=== PATIENT | female | born 1975 | race Caucasian/White ===

== ENCOUNTER 2023-02-12 23:28 | Emergency (ER) | payer BC ==
[2023-02-12] MEDS ORDERED: Sodium Chloride 0.9% 10 ML Syringe FLUSH PRN (23:56)
[2023-02-12] MEDS ORDERED: Ketorolac 30 MG/ML SDV IVPUSH ONE (23:56)
[2023-02-12] MEDS ORDERED: Ondansetron 4 MG/2 ML SDV IVPUSH ONE (23:56)
[2023-02-13 00:04] LABS: BASOPHILS ABSOLUTE AUTO 0.1 K/mm3 (0.0-0.2); EOSINOPHILS ABSOLUTE AUTO 0.1 K/mm3 (0.0-0.4); EOSINOPHILS PERCENT AUTO 0.6 % (0.0-6.0); HEMATOCRIT 38.8 % (37.0-47.0); HEMOGLOBIN 12.4 gm/dl (12.0-16.0); IMMATURE GRAN ABSOLUTE AUTO 0.04 K/mm3 (0.00-0.05); IMMATURE GRAN PERCENT AUTO 0.4 % (0.0-0.4); LYMPHOCYTES ABSOLUTE AUTO 0.7 K/mm3 (1.0-4.8); LYMPHOCYTES PERCENT AUTO 6.7 % (24.0-44.0); MEAN CORPUSCULAR HEMOGLOBIN 26.4 pg (28.0-32.0); MEAN CORPUSCULAR VOLUME 82.7 fl (83.0-99.0); MEAN PLATELET VOLUME 9.9 fl (9.4-12.3); MONOCYTES ABSOLUTE AUTO 0.4 K/mm3 (0.0-0.8); MONOCYTES PERCENT AUTO 4.4 % (0.0-8.0); NEUTROPHILS ABSOLUTE AUTO 8.4 K/mm3 (1.8-7.7); NEUTROPHILS PERCENT AUTO 86.9 % (41.0-71.0); PLATELET COUNT,PLT 408 K/mm3 (150-400); RED BLOOD CELL COUNT 4.69 M/mm3 (4.10-5.30); WHITE BLOOD CELL COUNT,WBC 9.63 K/mm3 (3.9-11.3)
[2023-02-13 00:40] LABS: A/G RATIO 0.8 (1-2); ALBUMIN 3.4 g/dl (3.4-5.0); ANION GAP 10.4 (5-15); BILIRUBIN TOTAL 0.4 mg/dL (0.2-1.0); EST CRCL DRUG DOSING (CG) 63.93 mL/min; MAGNESIUM 1.8 mg/dL (1.8-2.4); POTASSIUM,K 3.4 mEq/L (3.5-5.1); PROTEIN TOTAL,TP 7.7 g/dl (6.4-8.2)
[2023-02-13 02:17] LABS: APPEARANCE,URINE CLEAR (Clear); BILIRUBIN,URINE NEGATIVE (Negative); COLOR,URINE YELLOW (Yellow); GLUCOSE,URINE NEGATIVE (Negative); KETONES,URINE 2+ (Negative); LEUKOCYTE ESTERASE,URINE NEGATIVE (Negative); NITRITE,URINE NEGATIVE (Negative); OCCULT BLOOD,URINE NEGATIVE (Negative); PROTEIN,URINE NEGATIVE (Negative); UROBILINOGEN,URINE 0.2 (0.2-1.0)
[2023-02-13] MEDS ORDERED: Iopamidol 612 MG/ML 100 ML Bottle IVPUSH ONE (03:04)
[2023-02-13] MEDS ORDERED: Acetaminophen/HYDROcodone 325-5 MG Tab PO ONE (03:39)
[2023-02-13 04:18] VITALS: BP 143/95; PULSE 66
[2023-02-13] MEDS ORDERED: fentaNYL 100 MCG/2 ML SDV IVPUSH ONE (05:22)
[2023-02-13] MEDS ORDERED: Naloxone 0.4 MG/ML SDV IVPUSH PRN (05:22)
[2023-02-13] MEDS ORDERED: Nitroglycerin/D5W 25 MG/250 ML BOTTLE IV SCH (05:30)
[2023-02-13 12:09] LABS: AMORPHOUS SEDIMENT,URINE MODERATE /hpf (NOT SEEN); BACTERIA,URINE FEW /hpf (FEW); MUCUS,URINE RARE /hpf (FEW); RBC,URINE 0-5 /hpf (0-5); WBC,URINE 0-5 /hpf (0-5)
== END 2023-02-13 04:15 | disposition home or self-care (01) ==
LOC: JD.ED 23:28
DX: N20.1 Calculus of ureter (principal); I10 Essential (primary) hypertension; F17.210 Nicotine dependence, cigarettes, uncomplicated
CPT/HCPCS: 36415; 74177; 80053; 81001; 83735; 85025; 96374; 96375; 99284; A9270; J1885; J2405; J3490; Q9967

== ENCOUNTER 2023-09-03 20:02 | Emergency (ER) | payer BC, MEDICAID ==
[2023-09-03 20:36] LABS: BASOPHILS ABSOLUTE AUTO 0.1 K/mm3 (0.0-0.2); BASOPHILS PERCENT AUTO 1.6 % (0.0-1.0); EOSINOPHILS ABSOLUTE AUTO 0.4 K/mm3 (0.0-0.4); EOSINOPHILS PERCENT AUTO 6.4 % (0.0-6.0); HEMATOCRIT 35.6 % (37.0-47.0); IMMATURE GRAN ABSOLUTE AUTO 0.01 K/mm3 (0.00-0.05); IMMATURE GRAN PERCENT AUTO 0.2 % (0.0-0.4); LYMPHOCYTES ABSOLUTE AUTO 1.4 K/mm3 (1.0-4.8); MEAN CORPUSCULAR HEMOGLOBIN 24.9 pg (28.0-32.0); MEAN CORPUSCULAR HGB CONC 30.9 g/dl (32.0-36.0); MEAN CORPUSCULAR VOLUME 80.5 fl (83.0-99.0); MEAN PLATELET VOLUME 10.5 fl (9.4-12.3); MONOCYTES ABSOLUTE AUTO 0.7 K/mm3 (0.0-0.8); MONOCYTES PERCENT AUTO 11.8 % (0.0-8.0); NEUTROPHILS ABSOLUTE AUTO 3.5 K/mm3 (1.8-7.7); PLATELET COUNT,PLT 266 K/mm3 (150-400); RED BLOOD CELL COUNT 4.42 M/mm3 (4.10-5.30); WHITE BLOOD CELL COUNT,WBC 6.21 K/mm3 (3.9-11.3)
[2023-09-03 20:38] VITALS: BP 210/110; PULSE 109
[2023-09-03] MEDS: Sodium Chloride 0.9% 10 ML Syringe FLUSH PRN (20:53)
[2023-09-03] MEDS: Labetalol 100 MG/20 ML MDV IVPUSH ONE (20:53)
[2023-09-03 21:06] LABS: APPEARANCE,URINE CLEAR (Clear); BILIRUBIN,URINE NEGATIVE (Negative); COLOR,URINE YELLOW (Yellow); GLUCOSE,URINE NEGATIVE (Negative); KETONES,URINE NEGATIVE (Negative); LEUKOCYTE ESTERASE,URINE NEGATIVE (Negative); NITRITE,URINE NEGATIVE (Negative); OCCULT BLOOD,URINE NEGATIVE (Negative); PH,URINE 5.5 (5.0-8.0); PROTEIN,URINE TRACE (Negative); UROBILINOGEN,URINE 0.2 (0.2-1.0)
[2023-09-03 21:07] LABS: ALBUMIN 3.3 g/dl (3.4-5.0); ANION GAP 11.4 (5-15); BILIRUBIN TOTAL 0.4 mg/dL (0.2-1.0); C-REACTIVE PROTEIN 0.35 mg/dL (<0.30); CALCIUM 8.8 mg/dL (8.5-10.1); EST CRCL DRUG DOSING (CG) 60.7 mL/min; POTASSIUM,K 3.4 mEq/L (3.5-5.1); PROTEIN TOTAL,TP 6.7 g/dl (6.4-8.2)
[2023-09-03 21:15] LABS: BACTERIA,URINE MODERATE /hpf (FEW); MUCUS,URINE MODERATE /hpf (FEW); RBC,URINE 0-5 /hpf (0-5); WBC,URINE 0-5 /hpf (0-5)
[2023-09-03 21:25] LABS: AMPHETAMINES SCREEN, URINE PRESUMPTIVE POSITIVE (CUTOFF=500); BARBITURATE SCREEN,URINE NEGATIVE (CUTOFF=200); BENZODIAZEPINES SCREEN,URINE NEGATIVE (CUTOFF=150); BUPRENORPHINE SCREEN,URINE NEGATIVE (CUTOFF=10); METHADONE SCREEN, URINE NEGATIVE (CUTOFF=200); METHAMPHETAMINES SCREEN, URINE PRESUMPTIVE POSITIVE (CUTOFF=500); OXYCODONE SCREEN,URINE NEGATIVE (CUT0FF=100); THC SCREEN,URINE 20 NG/ML NEGATIVE (CUTOFF=50)
== END 2023-09-03 22:05 | disposition home or self-care (01) ==
LOC: JD.ED 20:02
DX: R07.9 Chest pain, unspecified (principal); R42 Dizziness and giddiness; R82.5 Elevated urine levels of drugs, medicaments and biological substances; I10 Essential (primary) hypertension; F17.210 Nicotine dependence, cigarettes, uncomplicated; Z79.899 Other long term (current) drug therapy
CPT/HCPCS: 36415; 70450; 71046; 80053; 80306; 80307; 81001; 84484; 85025; 85379; 86140; 96374; 99285; J1921; J3490; 93010; 99284

== ENCOUNTER 2023-12-21 15:44 | Emergency (ER) | payer MEDICAID ==
[2023-12-21 19:57] VITALS: BP 186/116; PULSE 95
== END 2023-12-21 16:55 | disposition home or self-care (01) ==
LOC: JD.ED 15:44
DX: I10 Essential (primary) hypertension (principal); R11.2 Nausea with vomiting, unspecified
CPT/HCPCS: 99283

== ENCOUNTER 2024-03-19 11:54 | Emergency (ER) | payer MEDICAID ==
[2024-03-19 12:13] VITALS: PULSE 98
[2024-03-19 16:37] VITALS: BP 159/99
== END 2024-03-19 13:10 | disposition home or self-care (01) ==
LOC: JD.ED 11:54
DX: S69.91XA Unspecified injury of right wrist, hand and finger(s), initial encounter (principal); I10 Essential (primary) hypertension; F17.210 Nicotine dependence, cigarettes, uncomplicated; Z79.899 Other long term (current) drug therapy; W10.9XXA Fall (on) (from) unspecified stairs and steps, initial encounter
CPT/HCPCS: 73110-26-RT; 73110-RT; 73130-26-RT; 73130-RT; 99283

== ENCOUNTER 2024-04-21 12:42 | Emergency (ER) | payer MEDICAID ==
[2024-04-21] MEDS ORDERED: Sodium Chloride 0.9% 10 ML Syringe FLUSH PRN (13:44)
[2024-04-21] MEDS: droPERidol 2.5 MG/ML SDV IV ONE ×2 (14:20→18:16)
[2024-04-21] MEDS: Ondansetron 4 MG/2 ML SDV IVPUSH ONE (14:21)
[2024-04-21] MEDS: Morphine 4 MG/ML Syringe IVPUSH ONE (14:21)
[2024-04-21 14:36] LABS: BASOPHILS ABSOLUTE AUTO 0.1 K/mm3 (0.0-0.2); BASOPHILS PERCENT AUTO 0.5 % (0.0-1.0); EOSINOPHILS ABSOLUTE AUTO 0.1 K/mm3 (0.0-0.4); EOSINOPHILS PERCENT AUTO 0.5 % (0.0-6.0); HEMATOCRIT 39.9 % (37.0-47.0); HEMOGLOBIN 12.5 gm/dl (12.0-16.0); IMMATURE GRAN ABSOLUTE AUTO 0.05 K/mm3 (0.00-0.05); IMMATURE GRAN PERCENT AUTO 0.4 % (0.0-0.4); LYMPHOCYTES ABSOLUTE AUTO 1.1 K/mm3 (1.0-4.8); LYMPHOCYTES PERCENT AUTO 8.4 % (24.0-44.0); MEAN CORPUSCULAR HEMOGLOBIN 24.7 pg (28.0-32.0); MEAN CORPUSCULAR HGB CONC 31.3 g/dl (32.0-36.0); MEAN CORPUSCULAR VOLUME 78.9 fl (83.0-99.0); MONOCYTES ABSOLUTE AUTO 0.9 K/mm3 (0.0-0.8); MONOCYTES PERCENT AUTO 7.1 % (0.0-8.0); NEUTROPHILS ABSOLUTE AUTO 10.4 K/mm3 (1.8-7.7); NEUTROPHILS PERCENT AUTO 83.1 % (41.0-71.0); PLATELET COUNT,PLT 359 K/mm3 (150-400); RED BLOOD CELL COUNT 5.06 M/mm3 (4.10-5.30); WHITE BLOOD CELL COUNT,WBC 12.47 K/mm3 (3.9-11.3)
[2024-04-21 14:57] LABS: A/G RATIO 0.8 (1-2); ALBUMIN 3.2 g/dl (3.4-5.0); ANION GAP 12.9 (5-15); BILIRUBIN TOTAL 0.4 mg/dL (0.2-1.0); BUN/CREATININE RATIO 13.8 (14-18); CALCIUM 8.7 mg/dL (8.5-10.1); CREATININE 0.8 mg/dL (0.55-1.02); EST CRCL DRUG DOSING (CG) 79.07 mL/min; POTASSIUM,K 3.9 mEq/L (3.5-5.1); PROTEIN TOTAL,TP 7.4 g/dl (6.4-8.2)
[2024-04-21] MEDS: Iopamidol 755 Mg/ML 100 ML Bottle IVPUSH ONE (18:13)
[2024-04-21] MEDS: Sodium Chloride 0.9% 100 ML IV SCH (18:13)
[2024-04-21] MEDS: Heparin Sodium/D5W 250 ML IV SCH (19:35)
[2024-04-21] MEDS: Heparin Sodium 5,000 Units/ML Vial IVPUSH ONE (19:36)
[2024-04-21] MEDS ORDERED: droPERidol 2.5 MG/ML SDV IV PRN (21:35)
[2024-04-21] MEDS ORDERED: Sodium Chloride 0.9% 1,000 ML IV SCH (21:45)
[2024-04-22 09:31] VITALS: BP 169/108; PULSE 90
[2024-04-22 09:34] LABS: HEMATOCRIT 37.7 % (37.0-47.0); HEMOGLOBIN 11.9 gm/dl (12.0-16.0); MEAN CORPUSCULAR HEMOGLOBIN 24.6 pg (28.0-32.0); MEAN CORPUSCULAR HGB CONC 31.6 g/dl (32.0-36.0); MEAN CORPUSCULAR VOLUME 78.1 fl (83.0-99.0); MEAN PLATELET VOLUME 10.3 fl (9.4-12.3); PLATELET COUNT,PLT 305 K/mm3 (150-400); RED BLOOD CELL COUNT 4.83 M/mm3 (4.10-5.30); WHITE BLOOD CELL COUNT,WBC 10.08 K/mm3 (3.9-11.3)
[2024-04-22 09:56] LABS: A/G RATIO 0.7 (1-2); ALBUMIN 2.7 g/dl (3.4-5.0); ANION GAP 11.4 (5-15); BILIRUBIN TOTAL 0.5 mg/dL (0.2-1.0); CALCIUM 8.7 mg/dL (8.5-10.1); CREATININE 0.9 mg/dL (0.55-1.02); EST CRCL DRUG DOSING (CG) 70.28 mL/min; PHOSPHORUS 2.9 mg/dL (2.6-4.7); POTASSIUM,K 3.4 mEq/L (3.5-5.1); PROTEIN TOTAL,TP 6.8 g/dl (6.4-8.2)
[2024-04-22 10:00] LABS: BAND PERCENT MAN 0 % (0-10); BASOPHILS PERCENT MAN 0 (0.1-1.2); EOSINOPHILS PERCENT MAN 1 % (0.7-5.8); LYMPHOCYTES % ATYPICAL MANUAL 0 %; LYMPHOCYTES PERCENT MAN 8 % (20-40); MONOCYTES PERCENT MAN 5 % (2-10)
[2024-04-22 10:01] LABS: ANISOCYTOSIS 1+ SLIGHT
[2024-04-22 10:02] LABS: BURR CELLS FEW; MICROCYTOSIS 1+ SLIGHT; PLATELET COUNT ESTIMATE ADEQUATE; POIKILOCYTOSIS 1+ SLIGHT; TOXIC GRANULATION FEW
[2024-04-22] MEDS ORDERED: Docusate Sodium 100 MG Cap PO PRN (10:02)
[2024-04-22] MEDS ORDERED: Acetaminophen 325 MG Tab PO PRN (10:02)
[2024-04-22] MEDS ORDERED: Polyethylene Glycol 3350 Powder 17 GM Packet PO PRN (10:02)
[2024-04-22] MEDS ORDERED: Ondansetron 4 MG/2 ML SDV IV PRN (10:02)
[2024-04-22] MEDS ORDERED: Potassium Chloride 20 MEQ Tab.ER PO ONE (10:30)
== END 2024-04-22 11:26 | disposition left against medical advice (07) ==
LOC: JD.ED 12:42 → JD.MS 04-22 08:55 → UNDOADMIN 04-22 08:55 → JD.MS 04-22 11:26
DX: I26.99 Other pulmonary embolism without acute cor pulmonale (principal); R79.89 Other specified abnormal findings of blood chemistry; I10 Essential (primary) hypertension; F17.200 Nicotine dependence, unspecified, uncomplicated
CPT/HCPCS: 36415; 71045; 71275; 80053; 83735; 83880; 84100; 84484; 84703; 85007; 85025; 85027; 93005; 93306; 93970; J1644; Q9967; 96365; 96366; 96375; 96376; 99285-25